=== PATIENT | female | born 1995 | race Caucasian/White ===

== ENCOUNTER 2019-05-01 02:29 | Emergency (ER) | payer MEDICAID ==
[~2019-05-01] VITALS: Ht 165.1 cm; Wt 47.6 kg
[2019-05-01 03:12] VITALS: BP 110/79
--- NOTE | 2019-05-01 03:12 | NUR ---
Patient discharged to home in stable conditon. Written and verbal after care instructions given. Patient verbalizes understanding of instructions. Patient ambulated with stable gait.
== END 2019-05-01 03:13 | disposition home or self-care (01) ==
LOC: ER 02:35
DX: I88.9 Nonspecific lymphadenitis, unspecified (principal); F17.200 Nicotine dependence, unspecified, uncomplicated; Z88.2 Allergy status to sulfonamides
CPT/HCPCS: A4663